=== PATIENT | female | born 1950 | race Caucasian/White ===

== ENCOUNTER 2018-01-07 00:28 | Emergency (ER) | payer MEDICARE, BC ==
[~2018-01-07] VITALS: Ht 154.9 cm; Wt 59.9 kg
[~2018-01-07 00:28] MED LIST: AMLODIPINE PO
[2018-01-07 01:00] VITALS: BP 132/80
== END 2018-01-07 01:19 | disposition home or self-care (01) ==
LOC: ER 00:31
DX: T23.102A Burn of first degree of left hand, unspecified site, initial encounter (principal); I10 Essential (primary) hypertension; X19.XXXA Contact with other heat and hot substances, initial encounter; Y93.89 Activity, other specified; Y92.89 Other specified places as the place of occurrence of the external cause; Y99.8 Other external cause status
CPT/HCPCS: 99281; A4606; Z7502; Z7610

== ENCOUNTER 2018-11-04 12:25 | Emergency (ER) | payer MEDICARE, BC ==
[~2018-11-04] VITALS: Ht 154.9 cm; Wt 54.0 kg
--- NOTE | 2018-11-04 12:25 | NUR ---
BIB SELF, WENT TO URGENT CARE DUE TO WEAKNESS ANF FLU SX, TOLD TO COME HERE INSTEAD BECAUSE OF FEVER AND BP=83/56, TO ER BED 3, HOOKED TO MONITOR, CHANGED TO GOWN, AWAITING MD MAURICIO
--- NOTE | 2018-11-04 14:10 | NUR ---
DR MARIA AT BEDSIDE
[2018-11-04] MEDS ORDERED: methylPREDNISolone SOD SUCC 125 MG/2ML VIAL IV ONE (14:30)
[2018-11-04] MEDS ORDERED: ALBUTEROL FS 2.5 MG/3 ML VIAL.NEB NEB ONE (14:30)
[2018-11-04] MEDS ORDERED: CEFTRIAXONE 1GM BAG (ER ONLY) 50 ML IV ONE ×2 (14:30→14:40)
[2018-11-04] MEDS ORDERED: AZITHROMYCIN 500 MG in IV D5W 250 ML IV ONE (14:30)
[2018-11-04] MEDS ORDERED: IV NS 0.9% 1,000 ML BAG IV ONE (14:30)
[2018-11-04 14:37] LABS: BASOPHILS % (AUTO) 0.7 % (0.0-2.0); EOSINOPHILS % (AUTO) 1.4 % (0.0-6.0); HEMATOCRIT 38 % (33-45); HEMOGLOBIN 12.7 g/dL (11.5-14.8); LYMPHOCYTES # (AUTO) 0.3 /CMM (0.8-4.8); MEAN CORPUSCULAR HGB CONC 34 g/dl (31.0-36.0); MEAN CORPUSCULAR VOLUME 91 fL (82-100); MONOCYTES # (AUTO) 0.4 /CMM (0.1-1.30); MONOCYTES % (AUTO) 15.9 % (2.0-12.0); NEUTROPHILS # (AUTO) 1.7 /CMM (1.8-8.9); PLATELET COUNT (AUTO) 101 /CMM (150-450); RED BLOOD CELL COUNT(AUTO) 4.17 MIL/uL (4.0-5.2); WHITE BLOOD COUNT (AUTO) 2.4 K/uL (4.3-11.0)
[2018-11-04] MEDS ORDERED: methylPREDNISolone SOD SUCC 125 MG/2ML VIAL ONE (14:40)
[2018-11-04] MEDS ORDERED: AZITHROMYCIN 500 MG VIAL ONE (14:40)
[2018-11-04 14:49] LABS: CALCIUM, SERUM 8.7 mg/dL (8.5-10.1); CARBON DIOXIDE 30 mmol/L (21-32); CHLORIDE 99 mmol/L (98-107); CREATININE 1.4 mg/dL (0.6-1.3); GLUCOSE 111 mg/dL (74-106); SODIUM SERUM 134 mmol/L (136-145); UREA NITROGEN, BLOOD 19 mg/dL (7-18)
[2018-11-04 14:54] LABS: ALANINE AMINOTRANSFERASE 81 U/L (12-78); ALBUMIN 3.5 g/dL (3.4-5.0); ALKALINE PHOSPHATASE 66 U/L (46-116); ASPARTATE AMINOTRANSFERASE 91 U/L (15-37); BILIRUBIN,DIRECT 0.1 mg/dL (0.0-0.2); BILIRUBIN,TOTAL 0.3 mg/dL (0.2-1.0); TOTAL PROTEIN, SERUM 7.2 g/dL (6.4-8.2)
[2018-11-04] MEDS ORDERED: ALBUTEROL FS 2.5 MG/3 ML VIAL.NEB ONE (15:58)
--- NOTE | 2018-11-04 16:07 | NUR ---
ONGOING BREATHING TX
[2018-11-04] MEDS ORDERED: VALS1TAB54 PO (16:20)
[2018-11-04] MEDS ORDERED: ZOLP10TA6 PO (16:20)
[2018-11-04] MEDS ORDERED: ROSU20TA31 PO (16:20)
[2018-11-04] MEDS ORDERED: FLUO-120 PO (16:20)
[2018-11-04] MEDS ORDERED: TRAZ-213 PO (16:20)
[2018-11-04] MEDS ORDERED: ANAS1TAB8 PO (16:20)
[2018-11-04] MEDS ORDERED: AMLO5TAB9 PO (16:20)
[2018-11-04 16:31] LABS: LYMPHOCYTES % (MANUAL) 11 % (16-48); MONOCYTES % (MANUAL) 9 % (0-11.0); NEUTROPHILS % (MANUAL) 80 (42-76)
[2018-11-04 17:47] LABS: BILIRUBIN,URINE Negative (NEGATIVE); BLOOD, URINE Trace-lysed Ery/uL (NEGATIVE); COLOR,URINE Light yellow (YELLOW); KETONES,URINE Negative (NEGATIVE); LEUKOCYTE ESTERASE ,URINE Trace (NEGATIVE); NITRITE, URINE Negative (NEGATIVE); PROTEIN,URINE Negative (NEGATIVE); UGLUCOSE Negative (NEGATIVE); UROBILINOGEN,URINE 0.2 EU/dL (0.2)
[2018-11-04 17:50] LABS: APPEARANCE,URINE HAZY (CLEAR)
--- NOTE | 2018-11-04 18:11 | NUR ---
IV removed. Catheter intact and site benign. Pressure and 4x4 applied to site. No bleeding noted.Patient discharged to home in stable condition. Written and verbal after care instructions given. Patient verbalizes understanding of instruction.
[2018-11-04 18:14] VITALS: BP 114/68
[2018-11-04 18:38] LABS: BACTERIA,URINE None seen /HPF (None Seen); SQUAMOUS EPITHELIAL CELL,UR Few /HPF (None Seen)
== END 2018-11-04 18:15 | disposition home or self-care (01) ==
LOC: ER 12:28 → UNDOADMIN 17:36 → TELE 17:36 → ER 18:15
DX: B34.9 Viral infection, unspecified (principal); J20.8 Acute bronchitis due to other specified organisms; D72.819 Decreased white blood cell count, unspecified; D69.6 Thrombocytopenia, unspecified; N28.9 Disorder of kidney and ureter, unspecified; R74.0 Nonspecific elevation of levels of transaminase and lactic acid dehydrogenase [LDH]; I10 Essential (primary) hypertension; Z98.890 Other specified postprocedural states; Z60.2 Problems related to living alone; Z79.899 Other long term (current) drug therapy
CPT/HCPCS: 36415; 71045; 80048; 80076; 81001; 83605; 84145; 84484; 85025; 85730; 87040 ×2; 87081; 87086; 87804 ×2; 93005 ×2; 94640; 96365; 96367; 96375; 99284; J0456; J0696; J2930; J7030; 81000-TC; 87400